=== PATIENT | female | born 1990 | race Two or more races ===

== ENCOUNTER 2020-06-07 20:23 | Inpatient (IN) | payer OTHER ==
[~2020-06-07] VITALS: Ht 152.4 cm; Wt 58.1 kg
[2020-06-07] MEDS ORDERED: PANTOPRAZOLE SO20 MG PO (22:10)
[2020-06-07] MEDS ORDERED: PRENATAL CAPLE1 EAC1 PO (22:10)
== END 2020-06-11 14:39 | disposition home or self-care (01) | DRG 833 ==
LOC: LDR 20:23 → OB/GYN 06-08 14:48
PROVIDERS: ADMIT Obstetrics & Gynecology; ATTEND Obstetrics & Gynecology
PROC: 4A1HXFZ Monitoring of Products of Conception, Cardiac Rhythm, External Approach (ICD-10-PCS; principal; 2020-06-07)
PROC: BY4FZZZ Ultrasonography of Third Trimester, Single Fetus (ICD-10-PCS; 2020-06-07)
DX: O60.03 Preterm labor without delivery, third trimester (principal); Z3A.34 34 weeks gestation of pregnancy; O32.1XX0 Maternal care for breech presentation, not applicable or unspecified; Z20.828 Contact with and (suspected) exposure to other viral communicable diseases

== ENCOUNTER 2020-07-08 03:52 | Inpatient (IN) | payer OTHER ==
[~2020-07-08] VITALS: Ht 152.4 cm; Wt 2.7 kg
[~2020-07-08 03:52] MED LIST: PANTOPRAZOLE SO20 MG PO; PRENATAL CAPLE1 EAC1 PO
== END 2020-07-11 14:50 | disposition home or self-care (01) | DRG 788 ==
LOC: SURG-SUITE 03:52 → LDR 03:52 → SURG-SUITE 09:03
PROVIDERS: ADMIT Obstetrics & Gynecology; ATTEND Obstetrics & Gynecology
PROC: 4A1HXFZ Monitoring of Products of Conception, Cardiac Rhythm, External Approach (ICD-10-PCS; 2020-07-08)
PROC: BY4FZZZ Ultrasonography of Third Trimester, Single Fetus (ICD-10-PCS; 2020-07-08)
PROC: 10D00Z1 Extraction of Products of Conception, Low, Open Approach (ICD-10-PCS; principal; 2020-07-08 07:00)
DX: O64.1XX0 Obstructed labor due to breech presentation, not applicable or unspecified (principal); Z3A.38 38 weeks gestation of pregnancy; Z37.0 Single live birth; Z20.828 Contact with and (suspected) exposure to other viral communicable diseases